=== PATIENT | female | born 1940 | race Caucasian/White ===

== ENCOUNTER 2017-09-08 14:16 | Outpatient (CLI) | payer MEDICARE, BC ==
[~2017-09-08] VITALS: Ht 160 cm; Wt 75.7 kg
[~2017-09-08 14:16] MED LIST: ALBU18HF2 INH; BUDE10.2 INH; CHOL400T PO; DIGO125T97 PO; METO100T7 PO; RANI150T8 PO; RIVA10TA PO; SYN0.1T PO
[2017-09-08 14:56] LABS: TOTAL HEMOGLOBIN 11.1 G/dl (12.0-16.0)
[2017-09-08] MEDS ORDERED: albuterol 2.5 MG/3 ML nebule NEB ONE (15:11)
== END 2017-09-08 23:59 | disposition home or self-care (01) ==
LOC: RT 14:16
PROVIDERS: ATTEND Internal Medicine Pulmonary Disease
DX: J44.9 Chronic obstructive pulmonary disease, unspecified (principal)
CPT/HCPCS: 85018; 94060; 94640; 94727; 94729; 94760

== ENCOUNTER 2022-05-10 13:40 | Emergency (ER) | payer BC, MEDICARE ==
[~2022-05-10] VITALS: Ht 160 cm; Wt 66.4 kg
[2022-05-10 13:47] VITALS: BP 156/77
[2022-05-10 16:10] LABS: CLARITY,URINE CLOUDY (Clear); COLOR,URINE YELLOW (Yellow); GLUCOSE, URINE NEGATIVE (Neg); KETONES,URINE NEGATIVE (Neg); LEUKOCYTE ESTERASE ,URINE TRACE (Neg); NITRITES, URINE NEGATIVE (Neg); OCCULT BLOOD,URINE TRACE-INTACT (Neg); PROTEIN,URINE TRACE mg/dl (Neg); UROBILINOGEN,URINE 0.2 E.U/dL (0.2-1.0)
[2022-05-10 16:16] LABS: UA COLLECTION TYPE CLN CATCH MIDSTREAM; WBC,URINE 0-4 /HPF (0-4)
[2022-05-10 16:17] LABS: AMORPHOUS URATES 4+; BACTERIA,URINE NONE SEEN /HPF (Neg); MUCUS STRANDS FEW /LPF (Neg); RBC,URINE 0-2 /HPF (0-2); SQUAMOUS EPITHELIAL CELL,UR NONE SEEN /LPF (FEW)
[2022-05-10] MEDS ORDERED: AMOX-117 PO (17:14)
[2022-05-10] MEDS ORDERED: amox tr/potassium clavulanate 875/125mg TAB PO ONE (17:15)
== END 2022-05-10 17:26 | disposition home or self-care (01) ==
LOC: ER 13:40
DX: N10 Acute pyelonephritis (principal); I25.10 Atherosclerotic heart disease of native coronary artery without angina pectoris; I10 Essential (primary) hypertension; J45.909 Unspecified asthma, uncomplicated; E11.9 Type 2 diabetes mellitus without complications; Z98.51 Tubal ligation status; Z98.890 Other specified postprocedural states; Z90.49 Acquired absence of other specified parts of digestive tract
CPT/HCPCS: 81001; 87088; 99283

== ENCOUNTER 2024-11-24 08:53 | Outpatient (CLI) | payer MEDICARE, MEDICAID ==
[2024-11-24 09:33] VITALS: PULSE 62; RESP 14; O2SAT 96
--- NOTE | 2024-11-24 15:22 | PROCEDURE NOTE - Respiratory ---
Procedure Note-Respiratory Providers to CC Copies To 1: DARÍO VYAS MD Procedure Name: This is a spirometry study dated November 24, 2024. Spirometry measurements: The forced vital capacity is normal. The FEV1 is significantly reduced. The FEV1 ratio also shows reduction. All of the measured flow rates show substantial reduction. Bronchodilator was not administered as part of the study. Conclusion: This study is abnormal. There is evidence for obstructive ventilatory defect in the moderate to severe category. This is consistent with the patient's history of asthma and COPD. Continued use of bronchodilator therapy is recommended. We have a previous study for comparison dated September 08 2017. Over the past seven years the FEV1 has remained stable. The forced vital capacity has dropped slightly over the past seven years. JOCELYN ALBERTS MD November 24, 2024 15:22
== END 2024-11-24 23:59 | disposition home or self-care (01) ==
LOC: RT 08:53
PROVIDERS: ATTEND Student in an Organized Health Care Education/Training Program
DX: J98.8 Other specified respiratory disorders (principal); F03.90 Unspecified dementia, unspecified severity, without behavioral disturbance, psychotic disturbance, mood disturbance, and anxiety
CPT/HCPCS: 94010; 94760; A6449

== ENCOUNTER 2024-12-07 11:14 | Outpatient (CLI) | payer MEDICARE, MEDICAID ==
--- NOTE | 2024-12-07 12:06 | RADIOLOGY REPORT ---
EXAMINATION: MR MRI HEAD INDICATION: DEMENTIA, UNSP SEVERITY, WITHOUT BEH/PSYCH/MOOD/ANX COMPARISON: None TECHNIQUE: Multiplanar, multisequence magnetic resonance imaging of the brain was performed without the use of i ntravenous contrast. FINDINGS: No evidence of acute or remote infarct. No intracranial hemorrhage. No mass effect. Generalized volume loss. There is moderate periventricular/deep white matter T2/FLAIR hyperintensity is nonspecific, but most commonly associated with chronic microvascular disease. The ventricles and sulci are normal in size for age. Clear basal cisterns. Flow voids in the major intracranial vessels are maintained. No abnormality of the orbits. Paranasal sinuses and mastoid air cells are clear. No abnormality of the visualized osseous structures and extracranial soft tissues. IMPRESSION: 1. No acute infarct, intracranial hemorrhage, mass effect, or hydrocephalus. 2. Moderate periventricular subcortical white matter disease, nonspecific but most commonly associate d with sequelae of chronic microvascular ischemic changes although other etiologies are not excluded. 3. Generalized volume loss, appropriate for patient's stated age.
== END 2024-12-07 23:59 | disposition home or self-care (01) ==
LOC: MRI02 11:14
PROVIDERS: ATTEND Student in an Organized Health Care Education/Training Program
DX: R90.82 White matter disease, unspecified (principal); F03.90 Unspecified dementia, unspecified severity, without behavioral disturbance, psychotic disturbance, mood disturbance, and anxiety; G93.89 Other specified disorders of brain
CPT/HCPCS: 70551